=== PATIENT | male | born 1960 ===

== ENCOUNTER 2025-03-17 12:27 | Day surgery (SDC) | payer OTHER, BC, SELFPAY ==
--- NOTE | 2025-03-15 12:34 | CM ---
Addendum entered by Melanie Wolff RN 03/16/25 16:31:
CM faxed clinical reports to Roosevelt.
Addendum entered by Melanie Wolff RN 03/16/25 16:04:
CM spoke with Roosevelt regarding patient's surgical plan. As per Dr. Baltazar, he does plan to operate on patient if patient presents. Roosevelt advised this CM that she has not gotten clinical information on the pending surgical procedure or any further
feedback from Dr. Baltazar's office.
CM updated CM director and Clinical Service Observer of Pre Admission testing with change in surgical plan.
As per Dr. Baltazar, plan is to keep patient overnight and then discharge to home. CM updated patient with plan for discharge on 03/18. Patient updated this CM that his friend will be providing a ride home on Thursday. Patient does understand that he
will not be approved for SNF.
Natalie Little (Patient's ride home)
[phone]
CM provided assistance to registration as they were unaware that patient was Workman's Comp.
Addendum entered by Melanie Wolff RN 03/15/25 16:31:
Cm spoke with patient's upper caser Roosevelt. Roosevelt stated that her leadership and biomedical engineering technician are meeting to discuss patient's discharge planning needs. Roosevelt advised further that SNF would not be approved. CM updated Dr. Baltazar with progress.
As per Dr. Baltazar, he has decided to remove himself from patient's care at this time. CM advised Dr. Baltazar that his office needs to call patient to cancel procedure. CM was advised that patient was notified.
CM spoke with patient's Slide Forming Machine Operator Roosevelt and updated that Dr. Baltazar is not longer going to proceed with case. Roosevelt will assist with providing patient with alternative surgeons.
CM updated Case Management leadership. CM further updated Tiara Hernandez with cancelation of case.
CM will remain available as needed.
Addendum entered by Melanie Wolff RN 03/15/25 12:46:
Patient's Workman's Comp Case Manger from [employer] is Roosevelt Li [phone]. CM left message to discuss.
As per patient, Dr. Baltazar spoke directly with Roosevelt Li and she denied SNF.
CM left message for Dr. Baltazar's medical office scheduler April to discuss further.
Original Note:
CM was updated that patient is coming in for surgery on 03/17. As [address] Dr. Baltazar's documentation, patient is requesting SNF placement post operatively. CM spoke with patient. Patient stated that this is a Workman's Comp case and he was informed
that Dr. Baltazar's office was making rehab arrangements. CM advised that patient would have to be evaluated by PT post operatively and would need to be authorized by his Workman's Comp upper caser prior to transition to SNF.
CM requested the name and number of patient's workman's compensation upper caser and RN.
[2025-03-17] VITALS (12 sets, daily range): BP systolic 113–141; BP diastolic 73–92; BMI 26.6
--- NOTE | 2025-03-17 09:16 | CM ---
Addendum entered by Melanie Wolff RN 03/17/25 13:00:
CM emailed home health aide script and copy of patient's post operative medications to Roosevelt at [facility]. Roosevelt will work on obtaining a home health aid for patient. Patient will be ready for discharge on 03/18. Roosevelt will follow up with home health aid
evaluation.
Addendum entered by Melanie Wolff RN 03/17/25 10:17:
CM faxed script for a home health aide to Roosevelt at [facility]. Rashad was updated by Dr. Baltazar that patient's medications have been sent to patient's [facility] pharmacy. CM updated patient with discharge planning progress and his medications that have been
sent to the [facility] pharmacy.
Cm will continue to follow.
Original Note:
CM reviewed medical records. CM received call from patient requesting assistance with a home health aide and prescriptions. CM left message for patient's leather case finisher at [facility] to discuss patient's discharge planning needs.
[2025-03-17] MEDS: DILAUDID 0.25 MG IV ×3 (15:44→16:26)
[2025-03-17] MEDS: NORMOSOL-R/PLASMALYTE-A 1000 IV (17:00)
--- NOTE | 2025-03-17 17:00 | PTCARENOTE ---
Pt received from the PACU in bed. Pt is Drowsy, although easily arousable. Pt's right shoulder with primaseal dressing intact, no drainage noted. Pt has normal radial pulses. Pt's hand is warm, can wiggle fingers, and reports full sensation to right
arm and hand., Pt reports pain as 'mild' at this time and denies nausea. VSS, Pt is afebrile. Pt instructed on plan of care, Pt verbalized understanding of instructions, call grijalva is within reach.
[2025-03-17] MEDS: COLACE 100 MG PO (20:06)
[2025-03-17] MEDS: ROXICODONE 10 MG PO (21:25)
[2025-03-17] MEDS: TRICOR 145 MG PO (22:15)
[2025-03-17] MEDS: ANCEF 5 IV (22:15)
[2025-03-17] MEDS: DILAUDID 0.5 MG IV (22:16)
[2025-03-18] VITALS (7 sets, daily range): BP systolic 110–130; BP diastolic 65–82; PULSE 74–84
[2025-03-18] MEDS: DILAUDID 0.5 MG IV ×2 (02:22→14:43)
[2025-03-18] MEDS: NORMOSOL-R/PLASMALYTE-A 1000 IV (02:22)
[2025-03-18] MEDS: ANCEF 5 IV (05:58)
[2025-03-18] MEDS: SYNTHROID 50 MCG PO (05:58)
[2025-03-18] MEDS: ROXICODONE 10 MG PO ×3 (06:05→20:23)
[2025-03-18 07:15] LABS: Hematocrit 31.4 % (39.0-52.0); Hemoglobin 11.2 g/dL (13.0-18.0)
[2025-03-18 07:22] LABS: INR 1.13; PT 14.8 Sec (11.4-14.6)
[2025-03-18 07:23] LABS: APTT 35.1 Sec (23.4-35.0)
--- NOTE | 2025-03-18 07:24 | W.PN.UPDATE ---
Update Note
Progress Note Update
With pain requiring IV analgesics
VSS
H/H reviewed
R UE NVI
Dressing D and I
Hold DC for today as requires IV pain meds
PT/OT to see
OOB with sling
Anticipate DC to home tomorrow
GGMD
[2025-03-18] MEDS: LOVENOX 40 MG SC (08:36)
[2025-03-18] MEDS: COLACE 100 MG PO ×2 (08:36→20:24)
--- NOTE | 2025-03-18 10:47 | CM ---
CM following for discharge to home with original plan for discharge today. Pt requiring IV pain medication, so discharge is delayed until tomorrow.
Workers Comp arranging for home health aid services.
--- NOTE | 2025-03-18 15:36 | CM ---
Pt was anticipated to discharge to home today. Pt requiring IV pain medication, so discharge is delayed until tomorrow.
Workers Comp arranging for home health aid services. CM Membership Director spoke with patient and WC Casemanager to ensure plan is successful.
[2025-03-18] MEDS: NORMOSOL-R/PLASMALYTE-A IV (15:55)
[2025-03-18] MEDS: TRICOR 145 MG PO (20:24)
[2025-03-19] MEDS: SYNTHROID 50 MCG PO (05:33)
[2025-03-19] MEDS: ROXICODONE 5 MG PO (05:33)
[2025-03-19 07:31] VITALS: BP 107/57
--- NOTE | 2025-03-19 08:41 | W.PN.UPDATE ---
Update Note
Progress Note Update
With significant Nausea as well as vomiting
VSS
R UE NVI
Dressing D and I
OOB with PT/OT
Zofran ordered
Postpone DC to home until tomorrow
GGMD
[2025-03-19] MEDS: LOVENOX 40 MG SC (09:27)
[2025-03-19] MEDS: COLACE 100 MG PO (09:28)
--- NOTE | 2025-03-19 09:57 | PTCARENOTE ---
pt became diaphoretic and nauseous after having large BM around 0600, just received Oxy 5mg . May have been issue on empty stomach per o/n nurse. Gave saltines and apple juice. Seemed to improve. pt spoke to Dr. Baltazar and is going to stay again
today.
[2025-03-19 14:15] VITALS: BP 128/79
[2025-03-19] MEDS: COLACE PO (19:58)
[2025-03-19] MEDS: TYLENOL 500 MG PO (20:58)
[2025-03-19] MEDS: TRICOR 145 MG PO (20:58)
[2025-03-19 23:10] VITALS: BP 120/73
[2025-03-20] MEDS: SYNTHROID 50 MCG PO (06:20)
[2025-03-20 07:10] VITALS: BP 118/78
[2025-03-20] MEDS: LOVENOX 40 MG SC (07:59)
[2025-03-20] MEDS: COLACE PO (07:59)
--- NOTE | 2025-03-20 08:17 | W.PN.UPDATE ---
Update Note
Progress Note Update
Comfortable
VSS
R UE NVI
Dressing D and I
For DC to home today
F/U with me later in week
GGMD
--- NOTE | 2025-03-20 08:25 | CM ---
CM reviewed medical records. Patient has been recommended for home PT/OT. CM emailed patient's Workman's Comp immigration case manager to assist with home PT/OT referral.
--- NOTE | 2025-03-20 09:08 | CM ---
Addendum entered by Melanie Wolff RN 03/20/25 09:37:
Cm spoke with patient and updated that patient will be contacted by [facility] to arrange for PT/OT. Patient is in agreement with plan. Patient will call his friend to pick him up. CM updated bedside RN.
PLAN: Home PT/OT, SVP with [facility].
Original Note:
CM spoke with [facility] to add home PT/OT. CM requesting script from Dr. Baltazar for home PT/OT services.
� Claim Number: [id number]
� Injured Worker Name: VIV ABBASI
� Referral: [id number]
� Product or Service: Home Health
[facility] CM will reach out to patient to make arrangements for home PT/OT and SVP. Reference number [id number].
[2025-03-20 10:12] VITALS: BP 127/76
--- NOTE | 2025-03-20 10:51 | PTCARENOTE ---
Clarified with pt, pt with scheduled follow up appointment for thursday.
--- NOTE | 2025-03-20 11:39 | CM ---
Addendum entered by Melanie Wolff RN 03/20/25 13:43:
Fuel Cell Binder at [facility] requesting script for 'Home Health RN evaluation' so home RN can evaluate for LACER AND TIER needs. Awaiting response.
Addendum entered by Melanie Wolff RN 03/20/25 12:11:
Dr. Baltazar has declined adding specifics to the [employer] script. CM advised Dr. Baltazar that patient will not have LACER AND TIER services unless script is specific to duration and number of hours.
Original Note:
CM emailed discharge documents, PT/OT notes and surgical report to patient's [facility] counseling case manager. [employer]inder is requesting an edit to patient's [employer] TIER script with duration and LACER AND TIER needs. CM requested change in script from Dr. Baltazar.
PLAN: Home with Home PT/OT and LACER AND TIER.
== END 2025-03-20 10:58 | disposition home or self-care (01) ==
LOC: SDS 12:27
PROVIDERS: ATTENDING PHYSICIAN Orthopaedic Surgery Hand Surgery
DX: S42.291A Other displaced fracture of upper end of right humerus, initial encounter for closed fracture (principal); W19.XXXA Unspecified fall, initial encounter
CPT/HCPCS: 23615; C1713; 73030; 76000; 85014; 85018; 85610; 85730; 97163; 97167; 97530